=== PATIENT | female | born 1975 | race Caucasian/White ===

== ENCOUNTER 2017-06-22 22:11 | Emergency (ER) | payer OTHER ==
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
[2017-06-22 23:14] VITALS: BP 121/77
== END 2017-06-22 23:14 ==
LOC: EEVIPCON 22:11